=== PATIENT | female | born 1960 | race Caucasian/White ===

== ENCOUNTER 2016-11-27 13:09 | Emergency (ER) | payer BC ==
--- NOTE | 2016-11-27 13:16 | EDM.PDOC ---
ED HPI GENERAL MEDICAL PROBLEM - General Chief Complaint: Respiratory Problem Stated Complaint: COUGH Time Seen by Provider: 11/27/16 13:10 Source of Information: Reports: Patient History Limitations: Reports: No Limitations - History of Present Illness INITIAL COMMENTS - FREE TEXT/NARRATIVE: History of present illness: [] Patient has had repeated eye infections were her eyes are matted shut, first one beginning 6 weeks ago and resolved with Augmentin. Recurred 2 days ago. She also has had a hoarse voice intermittently for the last 6 weeks that is progressively worsening. She denies cough, fevers, chills or shortness of breath. She has no difficulty swallowing. Review of systems: As per history of present illness and below otherwise all systems reviewed and negative. Past medical history: As per history of present illness and as reviewed below otherwise noncontributory. Surgical history: As per history of present illness and as reviewed below otherwise noncontributory. Social history: No reported history of drug or alcohol abuse. Family history: As per history of present illness and as reviewed below otherwise noncontributory. Physical exam: General: Well developed, well nourished in NAD HEENT: Atraumatic, normocephalic, pupils reactive, eyes are watery with clear fluid is no purulent drainage. negative for conjunctival pallor or scleral icterus, mucous membranes moist, throat clear mildly erythematous no edema, neck supple, nontender, trachea midline.No stridor, Lungs: Clear to auscultation, breath sounds equal bilaterally, chest nontender. No wheezing or accessory muscle use Heart: S1S2, regular, negative for clicks, rubs, or JVD. Abdomen: Soft, nondistended, nontender. Negative for masses or hepatosplenomegaly. Negative for costovertebral tenderness. Pelvis: Stable nontender. Genitourinary: Deferred. Rectal: Deferred. Extremities: Atraumatic, negative for cords or calf pain. Neurovascular unremarkable. Neuro: Awake, alert, oriented. Cranial nerves II through XII unremarkable. Cerebellum unremarkable. Motor and sensory unremarkable throughout. Exam nonfocal. Diagnostics: [] Therapeutics: [] Impression: [] Laryngitis, recurrent conjunctivitis Plan: [] Rest vocal cords, erythromycin ointment to eyes 3 times a day for one week followup her nose and throat, stop smoking Definitive disposition and diagnosis as appropriate pending reevaluation and review of above. - Related Data Allergies Allergy/AdvReac Type Severity Reaction Status Date / Time No Known Allergies Allergy Verified 11/27/16 13:17 Home Meds: Home Meds Erythromycin Base [Erythromycin 0.5% Ophth Oint] 1 applic OP TID #1 tube [Rx] methylPREDNISolone [Medrol] 4 mg PO ASDIRECTED #1 dosepk 11/27/16 [Rx] Social & Family History - Tobacco Use Years of Tobacco use: 25 - Alcohol Use Days Per Week of Alcohol Use: 0 - Recreational Drug Use Recreational Drug Use: No ED ROS GENERAL - Review of Systems Review Of Systems: See Below (See history of present illness) ED EXAM, GENERAL - Physical Exam Exam: See Below (See history of present illness) Course - Vital Signs Last Recorded V/S: Last Vital Signs Temp 36.4 C 11/27/16 13:14 Pulse 108 H 11/27/16 13:14 Resp 20 11/27/16 13:14 BP 168/96 H 11/27/16 13:14 Pulse Ox 94 L 11/27/16 13:14 Departure - Departure Time of Disposition: 13:32 Disposition: Home, Self-Care 01 Condition: good Clinical Impression: Laryngitis Conjunctivitis Qualifiers: Conjunctivitis type: unspecified Laterality: bilateral Qualified Code(s): H10.9 - Unspecified conjunctivitis - Discharge Information Prescriptions: Erythromycin Base [Erythromycin 0.5% Ophth Oint] 1 applic OP TID #1 tube methylPREDNISolone [Medrol] 4 mg PO ASDIRECTED #1 dosepk Referrals: PCP,None [Primary Care Provider] - Forms: ED Department Discharge Additional Instructions: The following information is given to patients seen in the emergency department who are being discharged to home. This information is to outline your options for follow-up care. We provide all patients seen in our emergency department with a follow-up referral. The need for follow-up, as well as the timing and circumstances, are variable depending upon the specifics of your emergency department visit. If you don't have a primary care physician on staff, we will provide you with a referral. We always advise you to contact your personal physician following an emergency department visit to inform them of the circumstance of the visit and for follow-up with them and/or the need for any referrals to a consulting specialist. The emergency department will also refer you to a specialist when appropriate. This referral assures that you have the opportunity for follow-up care with a specialist. All of these measure are taken in an effort to provide you with optimal care, which includes your follow-up. Under all circumstances we always encourage you to contact your private physician who remains a resource for coordinating your care. When calling for follow-up care, please make the office aware that this follow-up is from your recent emergency room visit. If for any reason you are refused follow-up, please contact the [facility] Emergency Department at and asked to speak to the emergency department charge nurse. Erythromycin ointment 1 inch strip 3 times a day for 7 days to both eyes. Medrol Dosepak take as directed Followup with ENT [facility]NT [address] [place] [id number]
[2016-11-27 14:22] VITALS: BP 142/94
== END 2016-11-27 13:55 | disposition home or self-care (01) ==
LOC: MW.ED 13:09
DX: H10.9 Unspecified conjunctivitis (principal); J04.0 Acute laryngitis
CPT/HCPCS: 99283

== ENCOUNTER 2017-03-09 06:22 | Day surgery (SDC) | payer BC ==
[~2017-03-09 06:22] MED LIST: Lactated Ringers 1,000 ML IV SCH
--- NOTE | 2017-03-09 07:22 | PCM.PREANE ---
Preanesthetic Assessment - Anesthesia/Transfusion/Family Hx Anesthesia History: Prior Anesthesia Without Reaction Family History of Anesthesia Reaction: No Transfusion History: No Prior Transfusion(s) - Review of Systems General: No Symptoms Pulmonary: No Symptoms Cardiovascular: No Symptoms Gastrointestinal: No Symptoms Neurological: No Symptoms - Physical Assessment NPO Status Date: 03/08/17 O2 Sat by Pulse Oximetry: 94 Respiratory Rate: 16 Vital Signs: Last Vital Signs Temp 36.6 C 03/09/17 06:45 Pulse 95 03/09/17 06:45 Resp 16 03/09/17 06:45 BP 147/91 H 03/09/17 06:45 Pulse Ox 94 L 03/09/17 06:45 Height: 1.75 m Weight: 114.759 kg ASA Class: 2 Mental Status: Alert & Oriented x3 Airway Class: Mallampati = 2 Dentition: Reports: [place](s) (central maxillary crown) ROM/Head Extension: Full Lungs: Clear to Auscultation, Normal Respiratory Effort Cardiovascular: Regular Rate, Regular Rhythm - Allergies Allergies/Adverse Reactions: Allergies Allergy/AdvReac Type Severity Reaction Status Date / Time adhesive tape Allergy Rash Verified 03/07/17 13:42 - Acknowledgements Anesthesia Type Planned: General Anesthesia Pt an Appropriate Candidate for the Planned Anesthesia: Yes Alternatives and Risks of Anesthesia Discussed w Pt/Guardian: Yes Pt/Guardian Understands and Agrees with Anesthesia Plan: Yes Additional Comments: PMH: hoarseness, smoker, vocal cord leukoplakia, new onset HTN ( 2 weeks) started on losartan/hctz. PreAnesthesia Questionnaire HEENT History: Reports: Other (See Below) Other HEENT History: hoarse vioce, uses reading glasses Cardiovascular History: Reports: Hypertension Other Cardiovascular History: just started medication Other Respiratory History: just started using Albuterol inhaler Gastrointestinal History: Reports: GERD Genitourinary History: Reports: Urinary Incontinence Endocrine/Metabolic History: Reports: Obesity/BMI 30+ - Infectious Disease History Infectious Disease History: Reports: Chicken Pox - Past Surgical History Head Surgeries/Procedures: Reports: None HEENT Surgical History: Reports: None Cardiovascular Surgical History: Reports: None Female Surgical History: Reports: Other (See Below) Other Female Surgeries/Procedures: TOVT Musculoskeletal Surgical History: Reports: Other (See Below) Other Musculoskeletal Surgeries/Procedures:: ACL repair left knee, has 1 screw in knee - SUBSTANCE USE Smoking Status *Q: Current Every Day Smoker Tobacco Use Within Last Twelve Months: Cigarettes Days Per Week of Alcohol Use: 0 Recreational Drug Use History: No - HOME MEDS Home Medications: Home Meds Albuterol [Ventolin HFA] 1 puff INH ASDIRECTED PRN 03/07/17 [History] Esomeprazole [NexIUM] 40 mg PO DAILY 03/07/17 [History] Fluticasone Propionate [Flonase Allergy Relief] 2 spr NASBOTH BID 03/07/17 [ History] Lisinopril/Hydrochlorothiazide [Lisinopril-Hctz 20-12.5 mg Tab] PO DAILY [History] - CURRENT (IN HOUSE) MEDS Current Meds: Current Medications Lactated Ringer's (Ringers, Lactated) 1,000 mls @ 100 mls/hr IV ASDIRECTED [facility] Last Admin: 03/09/17 06:58 Dose: 100 mls/hr
[2017-03-09] MEDS ORDERED: EPINEPHrine 1 MG/ML SDV ONE ×2 (07:29→07:31)
[2017-03-09] MEDS ORDERED: Midazolam 1 MG/ML 2 ML SDV ONE (07:43)
[2017-03-09] MEDS ORDERED: Propofol 200 MG/20 ML SDV ONE (07:43)
[2017-03-09] MEDS ORDERED: Lidocaine 2% 5 ML SDV ONE (07:43)
[2017-03-09] MEDS ORDERED: fentaNYL 100 MCG/2 ML SDV ONE (07:43)
[2017-03-09] MEDS ORDERED: Rocuronium 10 MG/ML 10 ML Syringe ONE (07:44)
[2017-03-09] MEDS ORDERED: Dexamethasone 4 MG/ML 5 ML MDV ONE (07:44)
[2017-03-09] MEDS ORDERED: Neostigmine Methylsulfate 1 MG/ML 5 ML Syringe ONE (07:44)
[2017-03-09] MEDS ORDERED: Ondansetron 4 MG/2 ML SDV ONE (07:44)
[2017-03-09] MEDS ORDERED: Sugammadex Sodium 200 MG/2 ML VIAL ONE ×2 (09:02→09:04)
[2017-03-09] MEDS ORDERED: fentaNYL 100 MCG/2 ML SDV IVPUSH PRN (09:29)
--- NOTE | 2017-03-09 09:51 | PCM.POSTAN ---
POST ANESTHESIA ASSESSMENT - MENTAL STATUS Mental Status: Alert, Oriented - RESPIRATORY Respiratory Status: Respiratory Rate WNL, Airway Patent, O2 Saturation Stable - CARDIOVASCULAR CV Status: Pulse Rate WNL, Blood Pressure Stable - GASTROINTESTINAL GI Status: No Symptoms - POST OP HYDRATION Hydration Status: Adequate & Stable
--- NOTE | 2017-03-09 09:56 | PCM.OPNOTE ---
- General Post-Op/Procedure Note Date of Surgery/Procedure: 03/09/17 Anesthesia Technique: General ET Tube Primary Surgeon: Marilyn Bangura Anesthesia Provider: Fede Farfan Condition: Good Free Text/Narrative:: Pre op diagnosis: Vocal cord leukoplakia Post op diagnosis: Normal laryngeal exam Procedure: Direct laryngoscopy Indications: She presented to my office with a h/o hoarseness 4 months ago. On office laryngoscopy she had bilateral mid true vocal cord leukoplakia. She is a lifelong smoker. On serial follow up exams the area of leukoplakia regressed - albeit persisted. Considering the underlying risk factors and in order to obtain a better visualization and biopsy of the area - she was scheduled for the procedure. Findings: Prominent blood vessels posterior aspect of true vocal cords; no leukoplakia visualized Operation details: A timeout was performed and patient was brought back to the operating room and laid supine on the operating table. Anesthesia was administered with a number 5 MLB endotracheal tube. She was appropriately positioned on the table- shoulder roll and head ring. Upper and lower gum whitmore were used. A Kleinsasser laryngoscope was used to obtain a good view of the endolarynx. This was suspended with a suspension system. Bilateral true vocal cords / endolarynx was visualized - findings as above. Photo documentation was obtained. The laryngoscope was removed. Gums, teeth and lips were intact. Specimens: None IV fluids:1400 ml Follow-up: As required
[2017-03-09 11:10] VITALS: BP 121/69
== END 2017-03-09 11:15 | disposition home or self-care (01) ==
LOC: MW.SDS 06:22
PROVIDERS: ATTEND Otolaryngology
DX: J38.3 Other diseases of vocal cords (principal); F17.210 Nicotine dependence, cigarettes, uncomplicated; I10 Essential (primary) hypertension; K21.9 Gastro-esophageal reflux disease without esophagitis; Z79.51 Long term (current) use of inhaled steroids; Z79.899 Other long term (current) drug therapy; Z98.890 Other specified postprocedural states; Z91.048 Other nonmedicinal substance allergy status
CPT/HCPCS: 31525; C9399; J0171; J1100; J2250; J2405; J3010; J7120; 00320; J2704

== ENCOUNTER 2020-12-23 19:04 | Emergency (ER) | payer SELFPAY ==
--- NOTE | 2020-12-23 19:53 | EDM.PDOC ---
ED HPI GENERAL MEDICAL PROBLEM - General Chief Complaint: Skin Complaint Stated Complaint: RT SIDE OF FACE SWELLING Time Seen by Provider: 12/23/20 19:11 Source of Information: Reports: Patient History Limitations: Reports: No Limitations - History of Present Illness INITIAL COMMENTS - FREE TEXT/NARRATIVE: HISTORY AND PHYSICAL: History of present illness: Patient is a 60-year-old female that presents to the emergency department secondary to a 2-hour history of right facial swelling. Patient reports that she was attempting to eat a large hot dog earlier and noticed that she could not open her mouth as wide as she had thought. Patient reports that she looked in the mirror noticed the right side of her face along her cheek was swollen. Patient reports minimal discomfort but it says it does hurt when she presses on it. Patient denies any dental pain or ear pain. Patient denies any recent illnesses and is up-to-date on her vaccinations. Patient denies fever, chills, chest pain, shortness of breath, or cough. Denies headache, neck stiff ness, change in vision, syncope, or near syncope. Denies nausea, vomiting, abdominal pain, diarrhea, constipation, or dysuria. Has not noted any blood in urine or stool. Patient has been eating and drinking appropriately. Review of systems: As per history of present illness and below otherwise all systems reviewed and negative. Past medical history: As per history of present illness and as reviewed below otherwise noncontributory. Surgical history: As per history of present illness and as reviewed below otherwise n oncontributory. Social history: See social history for further information Family history: As per history of present illness and as reviewed below otherwise noncontributory. Physical exam: General: Patient is alert, oriented, and in no acute distress. Patient sitting comfortably on exam table. Vitals stable and reviewed by me. HEENT: Right sided parotid gland is mildly edematous without erythema and mildly tender to palpation. Otherwise atraumatic, normocephalic, pupils equal and reactive bilaterally, negative for conjunctival pallor or scleral icterus, mucous membranes moist, TMs normal bilaterally, throat clear, uvula midline, neck supple, nontender, trachea midline. No drooling or trismus noted. No meningeal signs. No hot potato voice noted. Lungs: Clear to auscultation, breath sounds equal bilaterally, chest nontender. Heart: S1S2, regular rate and rhythm without overt murmur Abdomen: Soft, nondistended, nontender. Negative for masses or hepatosplenomegaly. Negative for costovertebral tenderness. Pelvis: Stable nontender. Genitourinary: Deferred. Rectal: Deferred. Skin: Intact, warm, dry. No lesions or rashes noted. Extremities: Atraumatic, negative for cords or calf pain. Neurovascular unremarkable. Neuro: Awake, alert, oriented. Cranial nerves II through XII unremarkable. Cerebellum unremarkable. Motor and sensory unremarkable throughout. Exam nonfocal. Notes: Signs and symptoms are prompt return to the ED thoroughly discussed with patient. Discussed importance for follow-up with a primary care provider. Voices understanding and is agreeable to plan of care. Denies any further questions or concerns at this time. Diagnostics: None Therapeutics: None Prescription: Augmentin Impression: Parotiditis, right Plan: 1. Take medication as prescribed. You can alternate ibuprofen and Tylenol as directed for pain and discomfort. 2. Follow-up with a primary care provider as discussed. Return to the ED as needed and as discussed. Definitive disposition and diagnosis as appropriate pending reevaluation and review of above. right side of face Pain Score (Numeric/FACES): 1 - Related Data Allergies Allergy/AdvReac Type Severity Reaction Status Date / Time adhesive tape Allergy Rash Verified 12/23/20 19:18 Home Meds: Home Meds Albuterol [Ventolin HFA] 1 puff INH ASDIRECTED PRN 03/07/17 [History] Esomeprazole [NexIUM] 40 mg PO DAILY 03/07/17 [History] Fluticasone Propionate [Flonase Allergy Relief] 2 spr NASBOTH BID 03/07/17 [History] Lisinopril/Hydrochlorothiazide [Lisinopril-Hctz 20-12.5 mg Tab] PO DAILY 03/07/17 [History] Amoxicillin/Potassium Clav [Augmentin 875-125 Tablet] 1 each PO BID 7 Days #14 tablet 12/23/20 [Rx] Past Medical History HEENT History: Reports: Other (See Below) Other HEENT History: hoarse vioce, uses reading glasses Cardiovascular History: Reports: Hypertension Other Cardiovascular History: just started medication Respiratory History: Reports: None Other Respiratory History: just started using Albuterol inhaler Gastrointestinal History: Reports: GERD Genitourinary History: Reports: Urinary Incontinence CARE SERVICES MANAGER History: Reports: Neurological History: Reports: None Psychiatric History: Reports: None Endocrine/Metabolic History: Reports: Obesity/BMI 30+ Hematologic History: Reports: None Immunologic History: Reports: None Oncologic (Cancer) History: Reports: None Dermatologic History: Reports: None - Infectious Disease History Infectious Disease History: Reports: Chicken Pox - Past Surgical History Head Surgeries/Procedures: Reports: None HEENT Surgical History: Reports: None Cardiovascular Surgical History: Reports: None Female Surgical History: Reports: Other (See Below) Other Female Surgeries/Procedures: TOVT Musculoskeletal Surgical History: Reports: Other (See Below) Other Musculoskeletal Surgeries/Procedures:: ACL repair left knee, has 1 screw in knee Social & Family History - Family History Family Medical History: No Pertinent Family History - Tobacco Use Tobacco Use Status *Q: Current Every Day Tobacco User Years of Tobacco use: 28 Packs/Tins Daily: 1 - Caffeine Use Caffeine Use: Reports: None Caffeine Use Comment: 3-4drinks/day - Recreational Drug Use Recreational Drug Use: No ED ROS GENERAL - Review of Systems Review Of Systems: Comprehensive ROS is negative, except as noted in HPI. ED EXAM, SKIN/RASH Exam: See Below (see dictation) Course - Vital Signs Last Recorded V/S: Last Vital Signs Temp 98.2 F 12/23/20 20:06 Pulse 98 12/23/20 20:06 Resp 20 12/23/20 20:06 BP 168/72 H 12/23/20 20:06 Pulse Ox 98 12/23/20 20:06 Departure - Departure Time of Disposition: 19:52 Disposition: Home, Self-Care 01 Clinical Impression: Parotiditis - Discharge Information Prescriptions: Amoxicillin/Potassium Clav [Augmentin 875-125 Tablet] 1 each PO BID 7 Days #14 tablet Instructions: Parotitis, [id number] Referrals: Kendra Pride NP [Primary Care Provider] - Forms: ED Department Discharge Additional Instructions: The following information is given to patients seen in the emergency department who are being discharged to home. This information is to outline your options for follow-up care. We provide all patients seen in our emergency department with a follow-up referral. The need for follow-up, as well as the timing and circumstances, are variable depending upon the specifics of your emergency department visit. If you don't have a primary care physician on staff, we will provide you with a referral. We always advise you to contact your personal physician following an emergency department visit to inform them of the circumstance of the visit and for follow-up with them and/or the need for any referrals to a consulting specialist. The emergency department will also refer you to a specialist when appropriate. This referral assures that you have the opportunity for follow-up care with a specialist. All of these measure are taken in an effort to provide you with optimal care, which includes your follow-up. Under all circumstances we always encourage you to contact your private physician who remains a resource for coordinating your care. When calling for follow-up care, please make the office aware that this follow-up is from your recent emergency room visit. If for any reason you are refused follow-up, please contact the [facility] Emergency Department at and asked to speak to the emergency department charge nurse. [facility] [address] [place] [address] [id number] [facility] [address] [place] [id number] 1. Take medication as prescribed. You can alternate ibuprofen and Tylenol as directed for pain and discomfort. 2. Follow-up with a primary care provider as discussed. Return to the ED as needed and as discussed. Sepsis Event Note (ED) - Evaluation Sepsis Screening Result: No Definite Risk - Focused Exam Vital Signs: Vital Signs Temp Pulse Resp BP Pulse Ox 12/23/20 20:06 98.2 F 98 20 168/72 H 98 12/23/20 19:10 97.8 F 104 H 18 173/92 H 94 L
[2020-12-23 20:07] VITALS: BP 168/72; PULSE 98
== END 2020-12-23 20:06 | disposition home or self-care (01) ==
LOC: MW.ED 19:04
DX: K11.20 Sialoadenitis, unspecified (principal); E66.9 Obesity, unspecified; I10 Essential (primary) hypertension; K21.9 Gastro-esophageal reflux disease without esophagitis; Z72.0 Tobacco use; Z68.30 Body mass index [BMI] 30.0-30.9, adult; Z91.048 Other nonmedicinal substance allergy status
CPT/HCPCS: 99283